=== PATIENT | male | born 1995 | race Caucasian/White ===

== ENCOUNTER 2018-07-10 10:43 | Emergency (ER) | payer OTHER ==
[~2018-07-10] VITALS: Ht 180.3 cm; Wt 79.8 kg
--- NOTE | 2018-07-10 10:50 | NUR ---
PT TO ER BED 5
[2018-07-10 10:52] VITALS: BP 147/71
[2018-07-10] MEDS ORDERED: AMOX250C31 PO (10:56)
[2018-07-10] MEDS ORDERED: LIDOCAINE 1% ***ER ONLY *** 10 MG/ML VIAL INJ ONE (11:00)
[2018-07-10] MEDS ORDERED: BACITRACIN OINT 500 UNITS/GM PKT TP ONE (11:00)
--- NOTE | 2018-07-10 11:00 | NUR ---
A 22 YO MALE BIB SELF FOR PAIN AND SWELLING TO LEFT INDEX FINGER. STARTED ON ANTIBIOTICS YESTERDAY FROM URGENT CARE. PT STATES " IT STARTED SWELLING UP LAST WEEKEND AND I WENT TO URGENT CARE, BUT THIS MORNING I WOKE UP AND IT WAS DISCOLORED AND DECIDED TO COME IN". 9/10 THROBBING PAIN TO L INDEX FINGER NAIL BED. CAP REFILL LESS THAN 3 SEC. WILL CONTINUE TO MONITOR. DENIES ANY FEVER OR CHILLS. LAST TDAP UNKNOWN. WILL CONTINUE TO MONITOR. SAFETY PRECAUTIONS IMPLEMENTED.
[2018-07-10] MEDS ORDERED: LIDOCAINE MPF 1% 5mL VIAL ONE (11:16)
--- NOTE | 2018-07-10 12:23 | NUR ---
dr. ames at bedside doing procedure at this time. pt is relaxed sitting in bed with vss. will continue to monitor.
[2018-07-10 12:35] VITALS: BP 140/72
--- NOTE | 2018-07-10 12:35 | NUR ---
Patient discharged with v/s stable. Written and verbal after care instructions given and explained. Patient alert, oriented and verbalized understanding of instructions. Ambulatory with steady gait. All questions addressed prior to discharge. ID band removed. Patient advised to follow up with PMD. Rx of BACTRIM DS 800MG-160MG , KEFLEX 500MG, NORCO 5/325MG given. Patient educated on indication of medication including possible reaction and side effects. Opportunity to ask questions provided and answered.
== END 2018-07-10 12:35 | disposition home or self-care (01) ==
LOC: MED 10:43
DX: L03.012 Cellulitis of left finger (principal); F17.200 Nicotine dependence, unspecified, uncomplicated; Z79.2 Long term (current) use of antibiotics
CPT/HCPCS: 81002; 99283; J2001